=== PATIENT | male | born 1980 | race Caucasian/White ===

== ENCOUNTER 2022-08-28 16:56 | Emergency (ER) | payer OTHER ==
[~2022-08-28] VITALS: Ht 182.9 cm; Wt 104.3 kg
[~2022-08-28 16:56] MED LIST: CYCL10 PO; IBUP600 PO; METPRE4DP PO; NAPR500 PO; Norco 5-325 Ta1 EACH PO; PRED20 PO; Percocet 5-3251 EACH PO
[2022-08-28 17:00] VITALS: BP 135/107
== END 2022-08-28 18:30 | disposition home or self-care (01) ==
LOC: ER 16:56
DX: F41.9 Anxiety disorder, unspecified (principal); Z79.899 Other long term (current) drug therapy; Z79.52 Long term (current) use of systemic steroids; I10 Essential (primary) hypertension
CPT/HCPCS: 99282

== ENCOUNTER 2022-09-20 11:51 | Day surgery (SDC) | payer OTHER ==
[~2022-09-20] VITALS: Ht 177.8 cm; Wt 99.6 kg
[2022-09-20 12:37] VITALS: BP 135/89
--- NOTE | 2022-09-20 13:08 | NUR ---
09/20/22 1308 [address] HISTORY, CHART, MEDICATIONS AND ALLERGIES REVIEWED BEFORE START OF PROCEDURE. PATIENT CONFIRMS NPO STATUS AND AGREES WITH SCHEDULED PROCEDURE. 3-LEAD EKG REVIEWED WITH PHYSICIAN PRIOR TO START OF PROCEDURE. MONITOR INTACT WITH CONTINUOUS PULSE OXIMETRY,CAPNOGRAPHY, 3-LEAD EKG, INTERMITTENT BP. SUPPLEMENTAL O2 TO BE TITRATED THROUGHOUT PROCEDURE TO MAINTAIN O2 SATURATION ABOVE 90%. PATIENT DETERMINED TO BE ASA APPROPRIATE FOR PROPOFOL SEDATION PRIOR TO START OF PROCEDURE BY DR. SHANNON.
--- NOTE | 2022-09-20 13:09 | NUR ---
[facility] in [facility] warming gown applied. History, Chart, Medications and Allergies reviewed before start of procedure.Lungs clear T/O to Auscultation. Patient confirms NPO status and agrees with scheduled surgery. Pre-Op teaching done. Pt verbalizes understanding. Patient States Post-Procedure ride home has been arranged.
[2022-09-20 14:00] VITALS: BP 121/80
[2022-09-20 14:10] VITALS: BP 137/90
--- NOTE | 2022-09-20 14:16 | NUR ---
Discharge instructions reviewed with patient. Patient verbalizes understanding. Copy given to patient to take home. Discharged via wheelchair to private car for ride home.
== END 2022-09-20 14:29 | disposition home or self-care (01) ==
LOC: ORSCSDS 11:51 → ORSCMMR 11:52 → ORSCSDS 13:00
PROVIDERS: Surgery
PROC: 0DBC8ZX Excision of Ileocecal Valve, Via Natural or Artificial Opening Endoscopic, Diagnostic (ICD-10-PCS; principal; 2022-09-20 13:00)
PROC: 0DB68ZX Excision of Stomach, Via Natural or Artificial Opening Endoscopic, Diagnostic (ICD-10-PCS; principal; 2022-09-20 13:00)
PROC: 0DBN8ZX Excision of Sigmoid Colon, Via Natural or Artificial Opening Endoscopic, Diagnostic (ICD-10-PCS; principal; 2022-09-20 13:00)
DX: K92.1 Melena (principal); R13.10 Dysphagia, unspecified; R63.4 Abnormal weight loss; K64.8 Other hemorrhoids; K29.70 Gastritis, unspecified, without bleeding; K64.5 Perianal venous thrombosis; K63.5 Polyp of colon; E78.5 Hyperlipidemia, unspecified; I10 Essential (primary) hypertension; F17.210 Nicotine dependence, cigarettes, uncomplicated
CPT/HCPCS: 88305; 88342; J2250; J2405; J2704; J7120